=== PATIENT | male | born 1975 | race Caucasian/White ===

== ENCOUNTER 2018-04-18 23:09 | Emergency (ER) | payer SELFPAY ==
--- NOTE | 2018-04-18 23:16 | ER ---
Nurse's Notes [facility] Name: Joseph Locke Age: 42 yrs Sex: Male : 1975 Arrival Date: 04/18/2018 Time: 23:10 Bed Waiting Private MD: Diagnosis: Presentation: 04/18 23:14 Note pt left during registration and told the register that he "would pass" on seeing bb the doctor. ED Course: 23:10 Patient arrived in ED. am2 Administered Medications: No medications were administered Outcome: 23:15 Patient left the ED. bb Signatures: Kia Dutta RN RN Sushma Mccauley am2
== END 2018-04-18 23:15 | disposition left against medical advice (07) ==
LOC: ER 23:09
DX: Z53.21 Procedure and treatment not carried out due to patient leaving prior to being seen by health care provider (principal)

== ENCOUNTER 2019-03-17 20:28 | Emergency (ER) | payer SELFPAY ==
[2019-03-17 21:51] LABS: Basophils % 0.5 % (0-1.3); Hematocrit 42.1 % (39.6-49.0); Lymphocytes % 15.9 % (15.3-44.8); RBC Red Blood Cell Count 4.26 M/uL (4.33-5.43)
[2019-03-17 22:22] LABS: ALT/SGPT 23 U/L (12-78); AST/SGOT 19 U/L (15-37); Albumin 4.2 g/dL (3.4-5.0); Alkaline Phosphatase 43 U/L (45-117); BUN Blood Urea Nitrogen 15 mg/dL (7-18); Bicarbonate 34 mmol/L (21-32); Bilirubin Direct 0.1 mg/dL (0-0.2); Bilirubin Total 0.4 mg/dL (0.2-1.0); Glucose Level 96 mg/dL (74-106); Potassium 3.7 mmol/L (3.5-5.1); Protein, Total 7.4 g/dL (6.4-8.2); Sodium Level 141 mmol/L (136-145)
[2019-03-17 22:22] LABS: Barbiturates NEGATIVE (NEGATIVE); Benzodiazepines NEGATIVE (NEGATIVE); Cocaine NEGATIVE (NEGATIVE); METHAMPHETAM POSITIVE (NEGATIVE); Methadone NEGATIVE (NEGATIVE); Opiates NEGATIVE (NEGATIVE); Phencyclidine NEGATIVE (NEGATIVE); THC Cannibis NEGATIVE (NEGATIVE)
[2019-03-17 22:35] LABS: Protime INR 1.01
--- NOTE | 2019-03-18 03:20 | ER ---
Nurse's Notes [facility] Name: Joseph Locke Age: 43 yrs Sex: Male : 1975 Arrival Date: 03/17/2019 Time: 20:30 Bed 18 Private MD: Diagnosis: Bipolar disorder Presentation: 03/17 20:30 Presenting complaint: EMS states: Pt was talking with mother when he stated he would wh rather peacefully than in a violent way. Pt stated he was just blowing off steam and he did not mean to. Pt stated he has no plan of hurting himself. Per Pt's niece she stated "he is always making threats and that they called EMS tonight because of this". Transition of care: patient was not received from another setting of care. Onset of symptoms was March 17, 2019. Risk Assessment: Do you want to hurt yourself or someone else? Patient reports desire/thoughts of hurting themselves or someone else. Provider notified. Initial Sepsis Screen: Does the patient meet any 2 criteria? No. Patient's initial sepsis screen is negative. Does the patient have a suspected source of infection? No. Patient's initial sepsis screen is negative. Care prior to arrival: None. 20:30 [facility] Method Of Arrival: EMS: [facility] 20:30 Acuity: ELISA 3 Triage Assessment: 21:09 General: Appears in no apparent distress. General: Behavior is calm, cooperative, wh appropriate for age. Pain: Denies pain. Historical: - Allergies: 21:13 PENICILLINS; - Home Meds: 21:13 Adderall XR Oral [Active]; trazodone Oral [Active]; Wellbutrin Oral [Active]; - PMHx: 21:13 Schizophrenia; Bipolar disorder; - Immunization history:: Adult Immunizations not up to date. - Social history:: Smoking status: Patient/guardian denies using tobacco. - Ebola Screening: : Patient negative for fever greater than or equal to 101.5 degrees Fahrenheit, and additional compatible Ebola Virus Disease symptoms Patient denies exposure to infectious person. - Family history:: not pertinent. - Hospitalizations: : No recent hospitalization is reported. Screenin:09 Abuse screen: Denies threats or abuse. Denies injuries from another. Nutritional wh screening: No deficits noted. Tuberculosis screening: No symptoms or risk factors identified. Fall Risk None identified. Assessment: 21:40 Reassessment: Patient appears in no apparent distress at this time. No changes from previously documented assessment. Patient and/or family updated on plan of care and expected duration. Pain level reassessed. Patient is alert, oriented x 3, equal unlabored respirations, skin warm/dry/pink. Patient denies pain at this time. 22:30 General: Appears in no apparent distress. comfortable, Behavior is calm, cooperative, wh appropriate for age. Pain: Denies pain. Neuro: Level of Consciousness is awake, alert, obeys commands, Oriented to person, place, time, situation, Appropriate for age. Cardiovascular: Heart tones S1 S2 Rhythm is regular. Respiratory: Airway is patent Respiratory effort is even, unlabored, Respiratory pattern is regular, symmetrical, Breath sounds are clear bilaterally. GI: Abdomen is flat, non-distended. : No signs and/or symptoms were reported regarding the genitourinary system. EENT: No signs and/or symptoms were reported regarding the EENT system. Derm: Skin is intact, is healthy with good turgor, Skin is pink, warm \\T\\ dry. normal. Musculoskeletal: Circulation, motion, and sensation intact. 22:47 Reassessment: Patient appears in no apparent distress at this time. No changes from previously documented assessment. Patient and/or family updated on plan of care and expected duration. Pain level reassessed. Patient is alert, oriented x 3, equal unlabored respirations, skin warm/dry/pink. Patient denies pain at this time. 23:42 Reassessment: Patient appears in no apparent distress at this time. No changes from previously documented assessment. Patient and/or family updated on plan of care and expected duration. Pain level reassessed. Patient is alert, oriented x 3, equal unlabored respirations, skin warm/dry/pink. Patient denies pain at this time. 03/18 00:43 Reassessment: Patient appears in no apparent distress at this time. No changes from previously documented assessment. Patient and/or family updated on plan of care and expected duration. Pain level reassessed. Patient is alert, oriented x 3, equal unlabored respirations, skin warm/dry/pink. Patient denies pain at this time. 02:03 Reassessment: Patient appears in no apparent distress at this time. No changes from previously documented assessment. Patient and/or family updated on plan of care and expected duration. Pain level reassessed. Patient is alert, oriented x 3, equal unlabored respirations, skin warm/dry/pink. Pt sleeping well no signs of distress noted Patient denies pain at this time. 03:02 Reassessment: Patient appears in no apparent distress at this time. No changes from previously documented assessment. Patient and/or family updated on plan of care and expected duration. Pain level reassessed. Patient is alert, oriented x 3, equal unlabored respirations, skin warm/dry/pink. [facility] Product Design Manager at bedside for initial evaluation done. 03:41 Reassessment: Patient appears in no apparent distress at this time. No changes from previously documented assessment. Patient and/or family updated on plan of care and expected duration. Pain level reassessed. Patient is alert, oriented x 3, equal unlabored respirations, skin warm/dry/pink. [facility] recs Discharge and Out Pt ff up Patient denies pain at this time. Psych: 03/17 21:13 Subjective: Patient's mood is sad. Objective: Patient is cooperative, Speech is normal, Affect is appropriate. Interventions: Removed personal items and placed in bag. Patient placed in hospital gown. Searched person for dangerous items. Urine collected and sent for urine drug test. Belonging list filled out. Suicide Risk Assessment: Sad Person Scale: Sex of patient: Male: Score 1 point. Age of patient: Score 0 point if patient falls outside of specified age parameters. Previous Attempt: Score 0 point if patient has not previously attempted suicide. Substance Abuse: Score 0 point if patient does not abuse alcohol or drugs. Rational Thinking: Score 0 point if patient has rational thinking. Social Support: Score 0 if social support is present/available. Safety Checks: Personal items have been removed. Door is open. Visitors are present. Pt denies substance abuse. Commitment: Patient will be a voluntary commitment. Vital Signs: 20:30 BP 124 / 69; Pulse 94; Resp 18; Temp 98.5; Pulse Ox 100% ; wh 03/18 00:13 BP 112 / 68; Pulse 76; Resp 18; Pulse Ox 99% on R/A; oe ED Course: 03/17 20:30 Patient arrived in ED. ds1 20:45 Safety checks: Items removed: yes. Door open/sign placed on door: yes. Family/friend oe present: yes. Sitter present: Yes. 20:46 Gilson Corado MD is Attending Physician. rn 20:49 Aditya Coronel is Primary Nurse. wh 21:00 Safety checks: Items removed: yes. Door open/sign placed on door: yes. Family/friend oe present: yes. Sitter present: Yes. 21:09 Triage completed. wh 21:09 Arm band placed on left wrist. wh 21:15 Patient has correct armband on for positive identification. Placed in gown. Bed in low wh position. Call light in reach. Side rails up X 1. Sitter at bedside. 21:15 Safety checks: Items removed: yes. Door open/sign placed on door: yes. Family/friend oe present: yes. Sitter present: Yes. 21:20 Warm blanket given. oe 21:30 Safety checks: Items removed: yes. Door open/sign placed on door: yes. Family/friend oe present: yes. Sitter present: Yes. 21:45 Safety checks: Items removed: yes. Door open/sign placed on door: yes. Family/friend oe present: yes. Sitter present: Yes. 21:48 Inserted saline lock: 20 gauge in left antecubital area, using aseptic technique. Blood oe collected. 22:00 Safety checks: Items removed: yes. Door open/sign placed on door: yes. Family/friend oe present: yes. Sitter present: Yes. 22:15 Safety checks: Items removed: yes. Door open/sign placed on door: yes. Family/friend oe present: yes. Sitter present: Yes. 22:30 Safety checks: Items removed: yes. Door open/sign placed on door: yes. Family/friend oe present: yes. Sitter present: Yes. 22:45 Safety checks: Items removed: yes. Door open/sign placed on door: yes. Family/friend oe present: no. Sitter present: Yes. 23:00 Safety checks: Items removed: yes. Door open/sign placed on door: yes. Family/friend oe present: yes. Sitter present: Yes. 23:15 Safety checks: Items removed: yes. Door open/sign placed on door: yes. Family/friend oe present: no. Sitter present: Yes. 23:30 Safety checks: Items removed: yes. Door open/sign placed on door: yes. Family/friend ar5 present: no. Sitter present: Yes. 23:45 Safety checks: Items removed: yes. Door open/sign placed on door: yes. Family/friend ar5 present: no. Sitter present: Yes. 23:50 Diet: Patient given snack. Patient given juice. Patient given water. oe 03/18 00:00 Safety checks: Items removed: yes. Door open/sign placed on door: yes. Family/friend oe present: no. Sitter present: Yes. 00:15 Safety checks: Items removed: yes. Door open/sign placed on door: yes. Family/friend oe present: no. Sitter present: Yes. 00:30 Safety checks: Items removed: yes. Door open/sign placed on door: yes. Family/friend oe present: no. Sitter present: Yes. 00:45 Safety checks: Items removed: yes. Door open/sign placed on door: yes. Family/friend oe present: no. Sitter present: Yes. 01:00 Safety checks: Items removed: yes. Door open/sign placed on door: yes. Family/friend oe present: no. Sitter present: Yes. 01:15 Safety checks: Items removed: yes. Door open/sign placed on door: yes. Family/friend oe present: no. Sitter present: Yes. 01:30 Safety checks: Items removed: yes. Door open/sign placed on door: yes. Family/friend oe present: no. Sitter present: Yes. 01:45 Safety checks: Items removed: yes. Door open/sign placed on door: yes. Family/friend oe present: no. Sitter present: Yes. 02:00 Safety checks: Items removed: yes. Door open/sign placed on door: yes. Family/friend oe present: no. Sitter present: Yes. 02:15 Safety checks: Items removed: yes. Door open/sign placed on door: yes. Family/friend oe present: no. Sitter present: Yes. 02:30 Safety checks: Items removed: yes. Door open/sign placed on door: yes. Family/friend oe present: no. Sitter present: Yes. 03:42 No provider procedures requiring assistance completed. IV discontinued, intact, wh bleeding controlled, No redness/swelling at site. Administered Medications: No medications were administered Outcome: 03:20 Discharge ordered by . abraham 03:42 Discharged to home ambulatory. 03:42 Condition: good 03:42 Discharge instructions given to patient, Instructed on discharge instructions, follow up and referral plans. POC Bipolar Demonstrated understanding of instructions, follow-up care, POC and Out Pt follow up on [facility] 03:43 Patient left the ED. Signatures: Marj Mayo ds1 Gilson Corado MD MD rn Espinosa, [place] oe Habalo, Winsy Alexandra Smith ar5 Corrections: (The following items were deleted from the chart) 03/17 22:37 22:28 Safety checks: Items removed: yes. Door open/sign placed on door: yes. oe Family/friend present: yes. Sitter present: Yes. oe 03/18 00:00 03/17 23:47 Safety checks: Items removed: ar5 oe
--- NOTE | 2019-03-18 03:21 | EDPHYS ---
Physician Documentation [facility] Name: Joseph Locke Age: 43 yrs Sex: Male : 1975 Arrival Date: 03/17/2019 Time: 20:30 Bed 18 Private MD: ED Physician Gilson Corado HPI: 03/17 21:17 This 43 yrs old Male presents to ER via EMS with complaints of Psych Problem. rn 21:17 The patient presents to the emergency department with depression. Onset: The rn symptoms/episode began/occurred at an unknown time. Severity of symptoms: At their worst the symptoms were mild in the emergency department the symptoms are unchanged. The patient has experienced similar episodes in the past. Patient states "did something stupid", was at mother's house cooking for baseball game, told her that his life is "coming to an end", she called 911 because she thought he wants to harm himself, makes these statements often and not sure if he was serious. He also told her that he would overdose if he did. Denies previous attempt. Takes wellbutrin. Currently denies suicidal ideation, family member states that he is very manipulative, and when brought to hospital he always denies suicidal ideation. . Historical: - Allergies: 21:13 PENICILLINS; - Home Meds: 21:13 Adderall XR Oral [Active]; trazodone Oral [Active]; Wellbutrin Oral [Active]; - PMHx: 21:13 Schizophrenia; Bipolar disorder; - Immunization history:: Adult Immunizations not up to date. - Social history:: Smoking status: Patient/guardian denies using tobacco. - Ebola Screening: : Patient negative for fever greater than or equal to 101.5 degrees Fahrenheit, and additional compatible Ebola Virus Disease symptoms Patient denies exposure to infectious person. - Family history:: not pertinent. - Hospitalizations: : No recent hospitalization is reported. ROS: 21:17 Constitutional: Negative for fever, chills, and weight loss, Eyes: Negative for injury, rn pain, redness, and discharge, Neck: Negative for injury, pain, and swelling, Cardiovascular: Negative for chest pain, palpitations, and edema, Respiratory: Negative for shortness of breath, cough, wheezing, and pleuritic chest pain, Abdomen/GI: Negative for abdominal pain, nausea, vomiting, diarrhea, and constipation, MS/Extremity: Negative for injury and deformity, Skin: Negative for injury, rash, and discoloration, Neuro: Negative for headache, weakness, numbness, tingling, and seizure. Exam: 21:17 Constitutional: This is a well developed, well nourished patient who is awake, alert, rn and in no acute distress. Very calm, smiling, drinking coffee. Head/Face: Normocephalic, atraumatic. ENT: MMM Cardiovascular: Regular rate and rhythm. No pulse deficits. Respiratory: No increased work of breathing, no retractions or nasal flaring. Skin: Warm, dry Neuro: Awake and alert, GCS 15, oriented to person, place, time, and situation. Cranial nerves II-XII grossly intact. Motor strength 5/5 in all extremities. Sensory grossly intact. Cerebellar exam normal. Normal gait. Psych: Awake, alert, with orientation to person, place and time. Behavior, mood, and affect are within normal limits. Vital Signs: 20:30 BP 124 / 69; Pulse 94; Resp 18; Temp 98.5; Pulse Ox 100% ; wh 03/18 00:13 BP 112 / 68; Pulse 76; Resp 18; Pulse Ox 99% on R/A; oe MDM: 03/17 20:46 Patient medically screened. rn 22:39 ED course: Pt medically cleared, pending [facility] mental evaluation.. rn 03/18 02:24 Differential diagnosis: depression, suicidal ideation. Data reviewed: vital signs, rn nurses notes, lab test result(s), EKG. Counseling: I had a detailed discussion with the patient and/or guardian regarding: the historical points, exam findings, and any diagnostic results supporting the discharge/admit diagnosis, lab results. ED course: Matthias Yang here to evaluate patient currently. . 03:01 Special discussion: Based on the history and exam findings, there is no indication for rn further emergent testing or inpatient evaluation. I discussed with the patient/guardian the need to see the psychiatrist for further evaluation of the symptoms. ED course: Pt evaluated by Matthias Yang, their recommendation is to dc home, outpt f/u with matthias yang. Already sees [facility] psychiatrist. . 03/17 21:03 Order name: Acetaminophen; Complete Time: 22:36 rn 10/10 21:03 Order name: Basic Metabolic Panel; Complete Time: 22:36 03/17 21:03 Order name: CBC with Diff; Complete Time: 22:36 03/17 21:03 Order name: ETOH Level; Complete Time: 22:36 03/17 21:03 Order name: Hepatic Function; Complete Time: 22:36 03/17 21:03 Order name: PT-INR; Complete Time: 03:21 03/17 21:03 Order name: Ptt, Activated; Complete Time: 03:21 rn 03/17 21:03 Order name: Salicylate; Complete Time: 22:36 rn 03/17 21:03 Order name: Urine Drug Screen; Complete Time: :36 03/17 21:03 Order name: EKG; Complete Time: : 03/17 21:03 Order name: EKG - Nurse/Tech; Complete Time: :27 03/17 21:03 Order name: IV Saline Lock; Complete Time: :27 03/17 21:03 Order name: Labs collected and sent; Complete Time: : 03/17 21:03 Order name: Urine Dipstick-Ancillary (obtain specimen); Complete Time: 21:27 rn Administered Medications: No medications were administered Disposition: 03/18/19 03:20 Discharged to Home. Impression: Bipolar disorder. - Condition is Stable. - Discharge Instructions: Bipolar Disorder, Suicidal Feelings: How to Help Yourself. - Medication Reconciliation Form, Thank You Letter, Antibiotic Education, Prescription Opioid Use form. - Follow up: Private Physician; When: As needed; Reason: Recheck today's complaints, Re-evaluation by your physician. - Problem is new. - Symptoms have improved. Signatures: Dispatcher [employer] EDGilson Li MD MD rn Habalo, Winsy Corrections: (The following items were deleted from the chart) 03:43 03:20 03/18/2019 03:20 Discharged to Home. Impression: Bipolar disorder. Condition is wh Stable. Forms are Medication Reconciliation Form, Thank You Letter, Antibiotic Education, Prescription Opioid Use. Follow up: Private Physician; When: As needed; Reason: Recheck today's complaints, Re-evaluation by your physician. Problem is new. Symptoms have improved. rn
[2019-03-18 04:21] VITALS: TEMP 98.5
[2019-03-18 04:22] VITALS: BP 112/68; O2SAT 99
--- NOTE | 2019-03-18 11:28 | EKG ---
Test Date: 2019-03-17 Test Time: 21:24:29 Adjuster Leader: JEANINE MEASUREMENT RESULTS: Intervals: Rate: 82 NC: 144 QRSD: 92 QT: 340 QTc: 397 [place]: P: 69 NC: 144 QRS: 56 T: 49 INTERPRETIVE STATEMENTS: Normal sinus rhythm Minimal voltage criteria for LVH, may be normal variant Borderline ECG Compared to ECG 07/17/2017 15:29:06 Left ventricular hypertrophy now present Electronically Signed On 03-18-19 11:27:29 CDT by Jose Armando Carballo
== END 2019-03-18 03:43 | disposition home or self-care (01) ==
LOC: ER 20:28
DX: F31.9 Bipolar disorder, unspecified (principal); Z88.0 Allergy status to penicillin
CPT/HCPCS: 36415; 80048; 80076; 80307; 80320; 80329; 85025; 85610; 85730; 93005; 99284

== ENCOUNTER 2019-11-06 20:39 | Emergency (ER) | payer SELFPAY ==
--- OUTSIDE RECORDS SUMMARY | 2019-11-06 20:42 | XMS REPORT | Summary of Care ---
:1975 Author Organization [facility] Address [address] [place] [id number] Care Team Providers Name Role Phone James Christopher MD Primary Care Provider [phone] Reason for Visit Reason Comments Refill Request Mouth/Lip Problem Runs alot and had problem wi th his lips getting dry and cracking Encounter Details Date Type Department Care Team Description 08/12/2019 Office Visit [facility] Family James Christopher on deficit Medicine - Vidya Lopez MD disorder (ADD) in [address] [place] [address] [address] [place] [address] DR adult (Primary Dx) [place] [id number] [phone] Allergies Active Allergy Reactions Severity Noted Date Comments Penicillin Unknown - See comments 04/15/2019 documented as of this encounter (statuses as of 08/12/2019) Medications Medication Sig Dispensed Refills Start Date End Date Status buPROPion SR Take 150 mg 0 Activ e (WELLBUTRIN SR) by mouth 2 150 mg SR tablet (two) times daily. dextroamphetamin Take 1 60 tablet 0 08/12/2019 Ac tive e-amphetamine tablet by (ADDERALL) 30 mg mouth 2 tabletIndication (two) times s: Attention daily. deficit disorder (ADD) in adult dextroamphetamin Take 1 60 tablet 0 07/18/2019 08/12/2019 D iscontinued e-amphetamine tablet by (Reord er) (ADDERALL) 30 mg mouth 2 tabletIndication (two) times s: Attention daily. deficit disorder (ADD) in adult documented as of this encounter (statuses as of 08/12/2019) Active Problems Not on filedocumented as of this encounter (statuses as of 08/12/2019) Social History Tobacco Use Types Packs/Day Years Used Date Former Smoker Smokeless Tobacco: Current User Snuff Alcohol Use Drinks/Week oz/Week Comments Not Currently Sex Assigned at Date Recorded Not on file Job Start Date Occupation Industry Not on file Not on file Not on file Travel History Travel Start Travel End No recent travel history available. documented as of this encounter Last Filed Vital Signs Vital Sign Reading Time Taken Comments Blood Pressure 112/70 08/12/2019 9:07 AM [employer]NAGER Pulse 82 08/12/2019 9:07 AM [employer] STR[employer] SENIOR MANAGER Temperature - - Respiratory Rate - - Oxygen Saturation - - Inhaled Oxygen Concentration - - Weight 66.2 kg (146 lb) 08/12/2019 9:07 AM [employer] STR[employer] SENIOR MANAGER Height 182.9 cm (6') 08/12/2019 9:07 AM [employer] STRATE[employer]IST SENIOR MANAGER Body Mass Index 19.8 08/12/2019 9:07 AM D[employer]ITAL STRATE[employer]IST SENIOR MANAGER documented in this encounter Progress Notes James Christopher MD - 08/12/2019 9:00 AM CST Patient is here for interval re-evaluation of therapy for Attention deficit disorder (ADD) in adult [F98.8] Efficacy of medication is Good, work performance Good ROS: Headaches: No Insomnia: No Appetite change: No Mood: No concerns Tics or movement disorders: No Behavior issues: No Socially inappropriate behavior: No Other adverse effects: No Chest pain or shortness of breath with exercise: No Outpatient Medications Marked as Taking for the 08/12/19 encounter (Office Visit) with James Christopher MD Medication Sig Dispense Refill dextroamphetamine-amphetamine (ADDERALL) 30 mg tablet Take 1 tablet by mouth 2 (two) times daily. 60 tablet 0 BP 112/70 (BP Location: Left arm, Patient Position: Sitting, BP CUFF SIZE: Adult Medium) | Pulse 82 | Ht 6' (1.829 m) | Wt 146 lb (66.2 kg) | BMI 19.80 kg/m General: alert, active, in no acute distress Head: normocephalic Eyes: pupils equal, round, reactive to light, conjunctiva clear and conjugate gaze Ears: TM's normal, external auditory canals normal Nose: clear, no discharge Oral Pharynx: moist mucous membranes without erythema, exudates or petechiae, dentition normal, normal for age Neck: supple and no lymphadenopathy Lungs: clear to auscultation Heart: regular rate and rhythm, no murmur Abdomen: normal bowel sounds, soft, non-distended, no hepatosplenomegaly or masses Neuro: normal without focal findings Skin: warm, no rashes, no ecchymosis ASSESSMENT: 1. Attention deficit disorder (ADD) in adult dextroamphetamine-amphetamine (ADDERALL) 30 mg tablet Follow-up in 4 months Take medication as directed Call if any side effects such as chest pain, shortness of breath, tics, or worsening behavior Patient/caregiver expressed understanding and is in agreement with plan of care 10 of 15 minute visit spent discussing ADHD, pathophysiology, treatment, side effects of medications, possible need to adjust dosage and/or change type of medication, follow up intervals. documented in this encounter Plan of Treatment Health Maintenance Due Date Last Done Comments DTaP,Tdap,and Td Vaccines (1 - 1984 Tdap) INFLUENZA VACCINE (#1) 2019 PNEUMOCOCCAL 0-64 YEARS COMBINED Aged Out No longer eligible based on SERIES patient's age to complete this topic documented as of this encounter Results Not on filedocumented in this encounter Visit Diagnoses Diagnosis Attention deficit disorder (ADD) in adul t - Primary documented in this encounter"
--- OUTSIDE RECORDS SUMMARY | 2019-11-06 20:42 | XMS REPORT | Summary of Care ---
:1975 Author Organization [facility] Address [address] [place] [address] Care Team Providers Name Role Phone James Christopher MD Primary Care Provider [phone] Reason for Visit Reason Comments Refill Request Encounter Details Date Type Department Care Team Description 10/12/2019 Refill [facility] James Collins MD Refill Request - [address] [address] [place] [address] [phone] Allergies Active Allergy Reactions Severity Noted Date Comments Penicillin Unknown - See comments 04/15/2019 documented as of this encounter (statuses as of 10/12/2019) Medications Medication Sig Dispensed Refills Start Date End Date Status buPROPion SR Take 150 mg 0 Activ e (WELLBUTRIN SR) by mouth 2 150 mg SR tablet (two) times daily. dextroamphetamin Take 1 60 tablet 0 10/12/2019 Ac tive e-amphetamine tablet by (ADDERALL) 30 mg mouth 2 tabletIndication (two) times s: Attention daily. deficit disorder (ADD) in adult dextroamphetamin Take 1 60 tablet 0 09/12/2019 10/12/2019 D iscontinued e-amphetamine tablet by (Reord er) (ADDERALL) 30 mg mouth 2 tabletIndication (two) times s: Attention daily. deficit disorder (ADD) in adult documented as of this encounter (statuses as of 10/12/2019) Active Problems Not on filedocumented as of this encounter (statuses as of 10/12/2019) Social History Tobacco Use Types Packs/Day Years [...] of this encounter Last Filed Vital Signs Not on filedocumented in this encounter Plan of Treatment Date Type Specialty Care Team Description 12/09/2019 Office Visit Family Medicine James Christopher MD [address] [place] [address] [phone] Health Maintenance Due Date Last Done Comments DTaP,Tdap,and Td Vaccines (1 - 1984 Tdap) INFLUENZA VACCINE (Season Ended) 2020 PNEUMOCOCCAL 0-64 YEARS COMBINED Aged Out No longer eligible based on SERIES patient's age to complete this topic documented as of this encounter Results Not on filedocumented in this encounter Visit Diagnoses Diagnosis Attention deficit disorder (ADD) in adul t documented in this encounter
--- OUTSIDE RECORDS SUMMARY | 2019-11-06 20:42 | XMS REPORT | Summary of Care ---
:1975 Author Organization [facility] Address [address] [place] [address] Care Team Providers Name Role Phone James Christopher MD Primary Care Provider [phone] Reason for Visit Reason Comments Refill Request Mouth/Lip Problem Runs alot and had problem wi th his lips getting dry and cracking Encounter Details Date Type Department Care Team Description 08/12/2019 Office Visit [facility] Family James Christopher on deficit Medicine - Vidya Lopez MD disorder (ADD) in [address] [place] [address] [address] [place] [address] DR adult (Primary Dx) [place] [phone] Allergies Active Allergy Reactions Severity Noted Date [...] Comments Blood Pressure 112/70 08/12/2019 9:07 AM TRANSFER AND PUMPHOUSE OPERATOR Pulse 82 08/12/2019 9:07 AM TRANSFER AND PUMPHOUSE OPERATOR Temperature - - Respiratory Rate - - Oxygen Saturation - - Inhaled Oxygen Concentration - - Weight 66.2 kg (146 lb) 08/12/2019 9:07 AM TRANSFER AND PUMPHOUSE OPERATOR Height 182.9 cm (6') 08/12/2019 9:07 AM TRANSFER AND PUMPHOUSE OPERATOR Body Mass Index 19.8 08/12/2019 9:07 AM TRANSFER AND PUMPHOUSE OPERATOR documented in this encounter Progress Notes James [...]
--- OUTSIDE RECORDS SUMMARY | 2019-11-06 20:42 | XMS REPORT | Summary of Care ---
:1975 Author Organization [facility] Address [address] [place] [address] Care Team Providers Name Role Phone James Christopher MD Primary Care Provider [phone] Reason for Visit Reason Comments Refill Request Encounter Details Date Type Department Care Team Description 09/12/[address] [facility] Family Medicine James Collins MD Refill Request - [address] [address] [place] [address] [phone] Allergies Active Allergy Reactions Severity Noted Date Comments Penicillin Unknown - See comments 04/15/2019 documented as of this encounter (statuses as of 09/12/2019) Medications Medication Sig Dispensed Refills Start Date End Date Status buPROPion SR Take 150 mg 0 Activ e (WELLBUTRIN SR) by mouth 2 150 mg SR tablet (two) times daily. dextroamphetamin Take 1 60 tablet 0 09/12/2019 Ac tive e-amphetamine tablet by (ADDERALL) 30 mg mouth 2 tabletIndication (two) times s: Attention daily. deficit disorder (ADD) in adult dextroamphetamin Take 1 60 tablet 0 08/12/2019 09/12/2019 D iscontinued e-amphetamine tablet by (Reord er) (ADDERALL) 30 mg mouth 2 tabletIndication (two) times s: Attention daily. deficit disorder (ADD) in adult documented as of this encounter (statuses as of 09/12/2019) Active Problems Not on filedocumented as of this encounter (statuses as of 09/12/2019) Social History Tobacco Use Types Packs/Day Years [...] Office Visit Family Medicine James Christopher MD [address] [place] [address] [phone] Health Maintenance Due Date Last Done [...]
--- OUTSIDE RECORDS SUMMARY | 2019-11-06 20:42 | XMS REPORT | Summary of Care ---
:1975 Author Organization [facility] - Health Address [address] [place] [address] Care Team Providers Name Role Phone James Christopher MD Primary Care Provider [phone] Encounter Details Date Type Department Care Team Description 08/12/2019 Orders Only [facility] Doctor Unassigned, No [address] [facility] [place] [address] [address] [place] [address] Allergies Active Allergy Reactions Severity Noted Date Comments Penicillin Unknown - See comments 04/15/2019 documented as of this encounter (statuses as of 08/15/2019) Medications Medication Sig Dispensed Refills Start Date End Date Status buPROPion SR Take 150 mg by 0 Ac tive (WELLBUTRIN SR) 150 mg mouth 2 (two) SR tablet times daily. dextroamphetamine-amph Take 1 tablet by 60 tablet 0 08/12/2019 Active etamine (ADDERALL) 30 mouth 2 (two) mg tabletIndications: times daily. Attention deficit disorder (ADD) in adult documented as of this encounter (statuses as of 08/15/2019) Active Problems Not on filedocumented as of this encounter (statuses as of 08/15/2019) Social History Tobacco Use Types Packs/Day Years [...] Office Visit Family Medicine James Christopher MD [address] [place] [phone] Health Maintenance Due Date Last Done Comments DTaP,Tdap,and Td Vaccines (1 - 1984 Tdap) INFLUENZA VACCINE (#1) 2019 PNEUMOCOCCAL 0-64 YEARS COMBINED Aged Out No longer eligible based on SERIES patient's age to complete this topic documented as of this encounter Procedures Procedure Name Priority Date/Time Associated Diagnosis Comme [facility] STATEMENT OF PATIENT Routine 08/12/2019 12:01 AM FINANCIAL RESPONSIBILITY ELEVATOR EXAMINER documented in this encounter Results Not on filedocumented in this encounter
--- OUTSIDE RECORDS SUMMARY | 2019-11-06 20:42 | XMS REPORT ---
:1975 Author Organization [facility] t Address [address] [place] [address] [place] [address] Care Team Providers Name Role Phone Candi BRIONES, John Attending Clinician Doctor Unassigned, Name Attending Clinician Unavailable Problems This patient has no known problems. Allergies, Adverse Reactions, Alerts This patient has no known allergies or adverse reactions. Medications This patient has no known medications. Procedures This patient has no known procedures. Encounters Start End Encounter Admission Attending Care Care Encounter Source Date/Time Date/Time Type Type Clinicians Facility Department ID 2019-10-12 2019-10-12 Refill [facility] [id number] 00:00:00 00:00:00 [facility] [id number] [facility] [id number] Professio [phone] nal 044 Office [address] One 2019-09-12 2019-09-12 Refill [facility] [id number] 00:00:00 00:00:00 [facility] [id number] [facility] [id number] Professio [phone] nal 044 Office [address] One 2019-08-12 2019-08-12 Office [facility] [id number] 08:59:10 09:14:10 Visit [facility] [id number] [facility] [id number] Professio [phone] nal 044 Office [address] One 2019-08-12 2019-08-12 Orders Doctor GRAHAM [id number] 00:00:00 00:00:00 Only Unassigned, [facility] [id number] [place] [facility] [id number] [phone] [id number] Results This patient has no known results.
[2019-11-06 21:46] LABS: Urine Blood NEGATIVE (NEG); Urine Glucose NEGATIVE (NEG); Urine Protein 1+ (NEG); Urine Specific Gravity >1.030 (1.005-1.030)
[2019-11-06 21:47] LABS: Absolute Lymphocytes (CBC) 1.1 K/uL (0.7-4.9); Basophils % 0.5 % (0-1.3); Hematocrit 43.6 % (39.6-49.0); Lymphocytes % 15.6 % (15.3-44.8); MPV 7.4 fL (7.6-11.3); RBC Red Blood Cell Count 4.61 M/uL (4.33-5.43)
[2019-11-06 21:48] LABS: Protime INR 0.89
[2019-11-06 22:00] LABS: Barbiturates NEGATIVE (NEGATIVE); Benzodiazepines NEGATIVE (NEGATIVE); Cocaine NEGATIVE (NEGATIVE); METHAMPHETAM POSITIVE (NEGATIVE); Methadone NEGATIVE (NEGATIVE); Opiates NEGATIVE (NEGATIVE); Phencyclidine NEGATIVE (NEGATIVE); THC Cannibis NEGATIVE (NEGATIVE)
[2019-11-06 22:00] LABS: ALT/SGPT 20 U/L (12-78); AST/SGOT 22 U/L (15-37); Albumin 4.4 g/dL (3.4-5.0); Alkaline Phosphatase 70 U/L (45-117); BUN Blood Urea Nitrogen 11 mg/dL (7-18); Bicarbonate 30 mmol/L (21-32); Bilirubin Direct < 0.1 mg/dL (0-0.2); Bilirubin Total 0.3 mg/dL (0.2-1.0); Glucose Level 73 mg/dL (74-106); Potassium 3.8 mmol/L (3.5-5.1); Protein, Total 8.3 g/dL (6.4-8.2); Sodium Level 139 mmol/L (136-145)
[2019-11-07 02:24] VITALS: O2SAT 100
[2019-11-07 02:26] VITALS: BP 139/97; TEMP 98.1
--- NOTE | 2019-11-07 19:36 | EDPHYS ---
Physician Documentation [facility] Name: Joseph Locke Age: 43 yrs Sex: Male : 1975 Arrival Date: 11/06/2019 Time: 20:41 Bed 14 Private MD: ED Physician Nehemias Andrews HPI: 11/05 21:15 This 43 yrs old Male presents to ER via Law Enforcement with complaints of cp Psych Problem. 21:15 The patient presents to the emergency department with suicide ideation, and the patient cp has a plan, to hang oneself. 21:15 Onset: The symptoms/episode began/occurred today. cp 21:15 Past psychiatric history: Prior diagnosis: bipolar disorder, schizophrenia, Psychiatric cp medications include: Wellbutrin, [place], Seroquel, Trazodone. Associated signs and symptoms: Pertinent negatives: delusions, fever, hallucinations, homicidal ideation. Patient reports he became upset with mother and told her he would wrap a rope around his neck and that she should kick the chair out from under him. Historical: - Allergies: 20:59 PENICILLINS; sg - Home Meds: 20:59 Trazodone Oral [Active]; Wellbutrin Oral [Active]; sg - PMHx: 20:59 Bipolar disorder; Schizophrenia; sg - Immunization history:: Adult Immunizations unknown. - Social history:: Smoking status: Patient denies any tobacco usage or history of. ROS: 21:20 Psych: Positive for suicidal ideation, Negative for auditory hallucinations, visual cp hallucinations, homicidal ideation, suicide gesture. 21:20 Eyes: Negative for injury, pain, redness, and discharge. cp 21:20 Constitutional: Negative for body aches, chills, fever, poor PO intake. 21:20 Cardiovascular: Negative for chest pain. 21:20 Respiratory: Negative for cough, shortness of breath, wheezing. 21:20 Abdomen/GI: Negative for abdominal pain, nausea, vomiting, and diarrhea. 21:20 Neuro: Negative for altered mental status, headache, weakness. 21:20 All other systems are negative. Exam: 21:25 Constitutional: The patient appears in no acute distress, alert, awake, comfortable, cp non-toxic, well developed, well nourished. 21:25 Head/Face: Normocephalic, atraumatic. cp 21:25 Eyes: Periorbital structures: appear normal, Conjunctiva: normal, no exudate, no injection, Lids and lashes: appear normal, bilaterally. 21:25 ENT: External ear(s): are unremarkable, Nose: is normal, Mouth: is normal, Posterior pharynx: is normal, airway is patent. 21:25 Chest/axilla: Inspection: normal, Palpation: is normal, no crepitus, no tenderness. 21:25 Cardiovascular: Rate: normal, Rhythm: regular. 21:25 Respiratory: the patient does not display signs of respiratory distress, Respirations: normal, no use of accessory muscles, labored breathing, is not present, Breath sounds: are clear throughout, no decreased breath sounds, no wheezing. 21:25 Abdomen/GI: Exam negative for discomfort, distension, guarding, Inspection: abdomen appears normal. 21:25 Back: pain, is absent, ROM is normal. 21:25 Skin: no rash present. 21:25 Neuro: Orientation: to person, place \T\ time. Mentation: is normal, Cerebellar function: is grossly normal, Motor: moves all fours, strength is normal, Sensation: is normal. 23:41 ECG was reviewed by the Attending Physician. cp Vital Signs: 20:53 BP 119 / 77; Pulse 67; Resp 14; Temp 98.4; Pulse Ox 100% on R/A; Weight 65.77 kg; ls4 Height 6 ft. (182.88 cm) (M); Pain 0/10; 21:01 BP 139 / 97; Pulse 83; Resp 16; Temp 98.1; Pulse Ox 100% ; dh4 22:01 BP 128 / 70; Pulse 72; Resp 14; Pulse Ox 100% on R/A; Pain 0/10; ls4 20:53 Body Mass Index 19.67 (65.77 kg, 182.88 cm) ls4 MDM: 21:05 Patient medically screened. cp 21:25 Differential diagnosis: drug withdrawal. acute psychotic break, depression, psychosis cp secondary to non-compliance. 11/06 00:54 Data reviewed: vital signs, nurses notes, lab test result(s), EKG. cp 01:00 Test interpretation: by ED physician or midlevel provider: ECG. cp 01:00 Transition of care: After a detail discussion of the patient's case, care is cp transferred to Nehemias Andrews MD. ED course: Patient to be evaluated by [facility]. 01:37 ED course: Patient evaluated by [facility] screener. Patient not suicidal. pkl Appointment for follow up at [facility] given on Thu. DenniseJUN 5. 11/05 21:06 Order name: Acetaminophen cp 11/05 21:06 Order name: Basic Metabolic Panel; Complete Time: 00:09 cp 11/06 00:55 Interpretation: Normal except: GLUC 73; CRE 1.34; GFR 58. cp 11/05 21:06 Order name: CBC with Diff; Complete Time: 00:09 cp 11/06 00:55 Interpretation: Normal except: MCV 94.5; MPV 7.4; KENZIE% 76.7. cp 11/05 21:06 Order name: ETOH Level; Complete Time: 00:09 cp 11/06 00:56 Interpretation: Reviewed. cp 11/05 21:06 Order name: Hepatic Function; Complete Time: 00:09 cp 11/06 00:55 Interpretation: Normal except: TP 8.3; GLOB 3.9. cp 11/05 21:06 Order name: PT-INR; Complete Time: 00:09 cp 11/05 21:06 Order name: Ptt, Activated; Complete Time: 00:09 cp 11/06 00:56 Interpretation: Reviewed. cp 11/05 21:06 Order name: Salicylate; Complete Time: 00:09 cp 11/06 00:55 Interpretation: TUAN 2.4; Reviewed. 11/05 21:06 Order name: Urine Drug Screen; Complete Time: 00:09 cp 11/06 00:55 Interpretation: Normal except: METHAMPHETAMINE POSITIVE. 11/05 21:06 Order name: EKG - Nurse/Tech; Complete Time: 21:49 cp 11/05 21:06 Order name: IV Saline Lock; Complete Time: 21:49 cp 11/05 21:06 Order name: Acetaminophen Level; Complete Time: 00:09 EDMS 11/05 21:43 Order name: Urine Dipstick--Ancillary (enter results); Complete Time: 00:09 mt 11/05 21:06 Order name: Labs collected and sent; Complete Time: 21:48 cp 11/05 21:06 Order name: Urine Dipstick-Ancillary (obtain specimen); Complete Time: 21:48 cp EC/31 23:41 Rate is 72 beats/min. Rhythm is regular. CA interval is normal. QRS interval is normal. cp QT interval is normal. T waves are Inverted in lead aVR. Interpreted by me. Reviewed by me. Administered Medications: No medications were administered Disposition: 11/06 01:37 Co-signature as Attending Physician, Nehemias Andrews MD. pkl Disposition: 11/07/19 01:41 Discharged to Home. Impression: Depression. - Condition is Stable. - Medication Reconciliation Form, Thank You Letter, Antibiotic Education, Prescription Opioid Use form. - Follow up: Private Physician; When: 2 - 3 days; Reason: Re-evaluation by your physician. - Problem is new. - Symptoms have improved. Signatures: Dispatcher [employer] EDWily Orr RN RN sg Lam, Pin, MD MD pkIvan Tucker PA PA cp Corrections: (The following items were deleted from the chart) 00:54 11/05 21:15 Patient reports he became upset with mother and told her he would wrap a cp rope around his neck and that she should kick the stool out from under him. cp 11/06 02:18 01:41 11/07/2019 01:41 Discharged to Home. Impression: Depression. Condition is Stable. sg Forms are Medication Reconciliation Form, Thank You Letter, Antibiotic Education, Prescription Opioid Use. Follow up: Private Physician; When: 2 - 3 days; Reason: Re-evaluation by your physician. Problem is new. Symptoms have improved. pkl
--- NOTE | 2019-11-07 19:36 | ER ---
Nurse's Notes [facility] Name: Joseph Locke Age: 43 yrs Sex: Male : 1975 Arrival Date: 11/06/2019 Time: 20:41 Bed 14 Private MD: Diagnosis: Depression Presentation: 11/05 20:40 Chief complaint: Domestic Helper states that this patient told his mother, whom sg he lives with, that if he were to tie a wire or rope around his neck, would she please kick the chair out from under him because he does not want to live anymore. Coronavirus screen: Proceed with normal triage. Ebola Screen: Patient negative for fever greater than or equal to 101.5 degrees Fahrenheit, and additional compatible Ebola Virus Disease symptoms Patient denies exposure to infectious person. Patient denies travel to an Ebola-affected area in the 21 days before illness onset. Initial Sepsis Screen: Does the patient meet any 2 criteria?. 20:40 Method Of Arrival: Law Enforcement: Orlin MAYER 20:53 Chief complaint:. Coronavirus screen: Proceed with normal triage. Patient denies a ls4 cough. Patient denies shortness of breath or difficulty breathing. Patient denies measured and/or subjective temperature greater than 100.4F prior to today's visit. Patient denies travel on a cruise ship or to a country the [facility] currently lists as an affected area. Patient denies contact with known and/or suspected case of COVID-19. Ebola Screen: No symptoms or risks identified at this time. Initial Sepsis Screen: Does the patient meet any 2 criteria? No. Patient's initial sepsis screen is negative. Does the patient have a suspected source of infection? No. Patient's initial sepsis screen is negative. Risk Assessment: Do you want to hurt yourself or someone else? Patient reports no desire to harm self or others. Onset of symptoms was November 06, 2019. Care prior to arrival: None. Activity prior to arrival: None. 20:53 Method Of Arrival: Law Enforcement: Orlin MAYER ls4 20:58 Acuity: ELISA 1 sg Historical: - Allergies: 20:59 PENICILLINS; sg - Home Meds: 20:59 Trazodone Oral [Active]; Wellbutrin Oral [Active]; sg - PMHx: 20:59 Bipolar disorder; Schizophrenia; sg - Immunization history:: Adult Immunizations unknown. - Social history:: Smoking status: Patient denies any tobacco usage or history of. Screenin:00 Abuse screen: Denies threats or abuse. Denies injuries from another. Nutritional ls4 screening: No deficits noted. Tuberculosis screening: No symptoms or risk factors identified. Fall Risk None identified. Assessment: 21:00 General: Appears in no apparent distress. comfortable, Behavior is calm, cooperative. ls4 Pain: Denies pain. Neuro: No deficits noted. Cardiovascular: No deficits noted. Respiratory: No deficits noted. GI: No deficits noted. : No deficits noted. : No signs and/or symptoms were reported regarding the genitourinary system. EENT: No deficits noted. No signs and/or symptoms were reported regarding the EENT system. Derm: No deficits noted. No signs and/or symptoms reported regarding the dermatologic system. Musculoskeletal: No deficits noted. No signs and/or symptoms reported regarding the musculoskeletal system. 23:16 Reassessment: Patient appears in no apparent distress at this time. Patient and/or ls4 family updated on plan of care and expected duration. Pain level reassessed. Patient is alert, oriented x 3, equal unlabored respirations, skin warm/dry/pink. 11/06 00:18 Reassessment: Matthias Yang on phone with [facility], reports to her that they would like to sg do an evaluation with the patient. 01:00 Reassessment: Patient appears in no apparent distress at this time. Patient and/or ls4 family updated on plan of care and expected duration. Pain level reassessed. Patient is alert, oriented x 3, equal unlabored respirations, skin warm/dry/pink. PT ON PHONE WITH GINGER YANG. PT RELEASED FROM [facility]. PT KNOWN TO [facility]. 01:40 Reassessment: Matthias Yang medical science liaison on facetime with pt and and Sary RN. Snow Remover Black, states that this pt may discharge to home for his follow up appointment scheduled on Monday November 11, 2019 as he is not a threat to himself or others at this time. to dispo pt to home. 01:41 Reassessment: pt to be discharged to home with family at this time. Vital Signs: 11/05 20:53 BP 119 / 77; Pulse 67; Resp 14; Temp 98.4; Pulse Ox 100% on R/A; Weight 65.77 kg; ls4 Height 6 ft. (182.88 cm) (M); Pain 0/10; 21:01 BP 139 / 97; Pulse 83; Resp 16; Temp 98.1; Pulse Ox 100% ; dh4 22:01 BP 128 / 70; Pulse 72; Resp 14; Pulse Ox 100% on R/A; Pain 0/10; ls4 20:53 Body Mass Index 19.67 (65.77 kg, 182.88 cm) 4 ED Course: 20:40 Arm band placed on. sg 20:40 Patient has correct armband on for positive identification. Bed in low position. Call ls4 light in reach. Valuables inventory done. See valuables checklist. to security. 20:40 Sitter at bedside. pt is SUHAS. PT DENIES SI OR HI. PT STATES HE WAS "JUST HAVING A ls4 MOMENT" CORBY AT [facility] ONE TO ONE. 20:41 Patient arrived in ED. ls4 20:55 Ivan Ramírez PA is PHCP. cp 20:55 Nehemias Andrews MD is Attending Physician. cp 20:58 Triage completed. sg 21:01 No provider procedures requiring assistance completed. ls4 21:48 Sary Deng RN is Primary Nurse. ls4 21:48 Acetaminophen Sent. ls4 21:51 Inserted saline lock: 20 gauge in right antecubital area, using aseptic technique. 4 Administered Medications: No medications were administered Outcome: 11/06 01:41 Discharge ordered by . pkl 02:18 Patient left the ED. sg 02:20 Discharged to home ambulatory. ls4 02:20 Condition: good 02:20 Discharge instructions given to patient, family, Instructed on discharge instructions, follow up and referral plans. medication usage, Demonstrated understanding of instructions, follow-up care, medications. Signatures: Wily Orantes RN RN sg Lam, Pin, MD MD pkl Page, Corey, PA PA cp Sary Deng RN RN [facility] Corrections: (The following items were deleted from the chart) 11/05 21:04 20:58 Acuity: ELISA 1 sg sg 21:04 20:53 Acuity: ELISA 2 ls4
== END 2019-11-07 02:18 | disposition home or self-care (01) ==
LOC: ER 20:39
DX: F32.9 Major depressive disorder, single episode, unspecified (principal); Z88.0 Allergy status to penicillin
CPT/HCPCS: 36415; 80048; 80076; 80307; 80320; 80329; 81003; 85025; 85610; 85730; 99291; 99292